=== PATIENT | female | born 1940 | race Caucasian/White ===

== ENCOUNTER 2016-09-24 01:40 | Inpatient (IN) | payer MEDICARE ==
[~2016-09-24] VITALS: Ht 154.9 cm; Wt 123.3 kg
--- NOTE | 2016-09-24 01:35 | ED.REPORT ---
HPI-Neurologic Deficit Date of Service Sep 24, 2016 ED Provider: Jeffery Phoenix MD Pt is a 75 y.o. female with a hx of DM and HTN who presents to the ED via EMS with right-sided weakness with reported onset of yesterday. Per EMS pt's family stated that pt appeared to have episodes of right-sided weakness yesterday. They claim that she was unable to get out of bed to use the restroom so they decided to call EMS. EMS states family were poor historians. Pt BS was 140 en route, per EMS. Pt denies headache, nausea, and vomiting. Pt appears confused and is a poor historian. Nursing Notes Stated Complaint: RT SIDED WEAKNESS Nursing Notes Reviewed: Yes Allergies: Coded Allergies: metformin (Unverified Adverse Reaction, Severe, kidney failure, 09/24/16) Scheduled Cholecalciferol (Vitamin D3) (Vitamin D3) 400 Unit Tablet 600 UNIT PO DAILY Furosemide (Furosemide) 20 Mg Tab 20 MG PO DAILY Gabapentin (Gabapentin) 600 Mg Tablet 600 MG PO HS Glimepiride (Glimepiride) 2 Mg Tablet 2 MG PO DAILYAC Lisinopril (Lisinopril) 10 Mg Tablet 10 MG PO DAILY Metoprolol Tartrate (Metoprolol Tartrate) 50 Mg Tablet 75 MG PO BID Triamcinolone Acet (Triamcinolone Acetonide Ointment) 1 Applic/0.25 Gm Oint 60 APPLIC TOP BID Scheduled PRN Hydroxyzine Pamoate (HydrOXYzine Pamoate) 25 Mg Capsule 25 MG PO Q6 PRN PRN For Itching General Time Seen by Provider: 01:39 Chief Complaint Weakness arm... (Right), Weakness leg... (Right) Hx Obtained From: Patient, Spouse, EMS Unable to Obtain Hx: Patient condition, Mental status Arrived By: Ambulance Sudden in Onset?: Yes Onset Occurred: Yesterday Progression Since Onset: Intermittent Past Medical History Past Medical History Diabetes mellitus Hypertension Sleep apnea Family History Noncontributory Smoking History Former Smoker Social History Drug Use: Denies drug use Other Social History: Good social support, , Local resident Ambulatory Status Independent Review of Systems Unable to Obtain ROS Patient condition, Mental status GI: Denies: Nausea, Vomiting Neurologic: Reports: Weakness (Right-sided), Denies: Headache Complete sys rev & neg: except as marked. Physical Exam Initial Vital Signs Vital Signs (First) Date Time Temp Pulse Resp B/P Pulse Ox O2 Delivery O2 Flow Rate FiO2 09/24/16 01:37 36.6 78 15 154/77 100 Room Air Initial VS: Reviewed Abdomen / GI: No distention Extremities: Vascular intact, Neuro intact Skin: Warm, Dry, No cyanosis General/Constitutional: Awake, Alert, No acute distress Appearance / Presentation: Positive: Obese, morbidly Head / Eyes: Atraumatic, Normocephalic Respiratory / Chest: Atraumatic, Breath sounds NL, Breath sounds = bilat, No respiratory distress Cardiovascular: Heart rate NL, No gallop, No murmurs Heart Rate / Rhythm: Positive: Irregular rhythm Mental Status: Positive: Disoriented to person (Age wrong) Right-sided weakness to face, arm, and leg. Left straight leg normal, ultimately leg fell to bed Dysarthric Interpretation & Diagnostics CT ANGIOGRAM BRAIN IMPRESSION: No CT evidence of stenosis or occlusion. No CT evidence of aneurysm formation or vascular malformation. Radiologist: Ridge Angel MD CT ANGIOGRAM NECK IMPRESSION: Normal CT angiogram of the left cervical carotid system. No stenosis by NASCET criteria Normal CT angiogram of the right cervical carotid system. No stenosis by NASCET criteria. Stenosis of the left vertebral artery. Radiologist: Ridge Angel MD Lab Results Interpretation Result Diagram: 09/24/16 0150 09/24/16 0150 Test 09/24/16 01:50 White Blood Count 8.8th/mm3 (3.8-10.1) Red Blood Count 4.61mil/mm3 (3.90-5.20) Hemoglobin 13.1g/dL (12.0-15.6) Hematocrit 41.8% (35.0-46.0) Mean Corpuscular Volume 90.7fL (81-100) Mean Corpuscular Hemoglobin 28.4pg (27.0-35.0) Mean Corpuscular Hemoglobin Concent 31.3% (32.0-37.0) Red Cell Distribution Width 13.5% (12.3-15.4) Platelet Count 232bil/L (150-400) Neutrophils (%) (Auto) 57.3% (40-74) Lymphocytes (%) (Auto) 28.7% (14-46) Monocytes (%) (Auto) 10.1% (4-12) Eosinophils (%) (Auto) 3.3% (0-5) Basophils (%) (Auto) 0.3% (0-3) Prothrombin Time 10.0sec (8.1-12.5) Prothromb Time International Ratio 0.94ratio Activated Partial Thromboplast Time 22.0sec (22.8-33.0) Sodium Level 141mEq/L (134-144) Potassium Level 5.9mEq/L (3.5-5.2) Chloride Level 105mEq/L (97-108) Carbon Dioxide Level 20mmol/L (18-29) Blood Urea Nitrogen 42mg/dL (8-27) Creatinine 1.27mg/dL (0.57-1.00) Estimat Glomerular Filtration Rate 59mL/min (>59) Glucose Level 122mg/dL (60-99) Calcium Level 9.7mg/dL (8.5-10.1) Total Bilirubin 0.2mg/dL (0.0-1.2) Aspartate Amino Transf (AST/SGOT) 22U/L (0-50) Alanine Aminotransferase (ALT/SGPT) 6U/L (0-32) Alkaline Phosphatase 79U/L (25-165) Troponin T < 0.010ug/L (0.0-0.011) Total Protein 7.2g/dL (6.4-8.4) Albumin 4.0g/dL (3.4-5.0) Alcohols < 10mg/dL (0-10) ECG Interpretation ECG Interpretation: Supraventricular bigeminy Time: 01:42 Interpreted by: ED physician Normal ECG Interpretation: Normal rate (58), Normal sinus rhythm X-Ray Chest Interpretation Chest Xray Interpretation: IMPRESSION: No acute cardiopulmonary disease. Interpretation / Wet Read by: Wet read ED physician CT Head Interpretation IMPRESSION: No CT evidence of hemorrhage, mass, or acute infarct. Radiologist: Ridge Angel MD Re-Eval/Medical Decision Med Decision/Clinical Course 75-year-old presents with symptoms of stroke on the right side, unclear whether primarily motor and posterior circulation, or N LMCA stroke and a difficult historian. Her symptoms are clearing but not completely resolved. She had a CTA showing left vertebral stenosis but no occlusion. The anterior circulation appears to be clear. Cannot exclude a more proximal embolic events and evolving TIA. She is admitted to medicine service. Consider MRI to evaluate the territory for ischemic injury. Not a candidate for TPA given uncertainty of onset. No remediable lesion found to require endovascular intervention. Source of Hx: Old records Re-Evaluation/Progress : Time of Eval: 05:15 Re-Evaluation/Progress Note: Pt rechecked. is now present. Discussed plan for admit, they understand and gree with plan. Consultation : Referral / Consult Name: Kecia Luke Consulted With: Hospitalist Call Returned at: 05:45 Land Development Project Manager: Accepts admit Note: Discussed pt condition. Accepts admit. Counseled Regarding: Diagnosis, Lab results Discharge & Departure Impression: Primary Impression: Left middle cerebral artery stroke Disposition: ADMITTED TO HOSPITAL Discharge Condition All VS Reviewed: Yes Condition: Improved Referrals: Constantine Orozco MD (PCP) Sharlene Attestation Portions of this note were transcribed by Ray Lin. I, Dr. Phoenix personally performed the history, physical exam and medical decision-making; I reviewed and confirmed the accuracy of the information in the transcribed note. Signed by: Sharlene Joel, 09/24/16 and 0546. copies to: Constantine Orozco MD, Christopher W MD Sep 24, 2016 01:35 RAY LIN Sep 24, 2016 01:42
[2016-09-24 01:37] VITALS: BP 154/77; PULSE 78; RESP 15; O2SAT 100
[~2016-09-24 01:40] MED LIST: CHOL400T PO; GABA600T2 PO; HYDR-3797 PO; METO50TA3 PO
[2016-09-24 01:53] LABS: BASOPHILS % (AUTO) 0.3 % (0-3); EOSINOPHILS % (AUTO) 3.3 % (0-5); MONOCYTES % (AUTO) 10.1 % (4-12); Mean Corpuscular Hemoglobin 28.4 pg (27.0-35.0); Mean Corpuscular Volume 90.7 fL (81-100); NEUTROPHILS % (AUTO) 57.3 % (40-74); Platelet Count 232 bil/L (150-400)
[2016-09-24] MEDS ORDERED: FUR20 PO (01:56)
[2016-09-24] MEDS ORDERED: METO50TA3 PO (01:59)
[2016-09-24] MEDS ORDERED: GLIM2TAB2 PO (01:59)
[2016-09-24] MEDS ORDERED: KEN1O TOP (01:59)
[2016-09-24] MEDS ORDERED: LISI10TA PO (01:59)
[2016-09-24 02:13] LABS: INR 0.94 ratio
[2016-09-24 02:33] LABS: TROPONIN T < 0.010 ug/L (0.0-0.011)
[2016-09-24 02:58] VITALS: BP 154/55; PULSE 84; RESP 17; O2SAT 97
[2016-09-24 04:54] VITALS: BP 152/43; PULSE 63; RESP 21; O2SAT 100
[2016-09-24] MEDS ORDERED: Lactated Ringer's 1,000 ML IV SCH (06:31)
[2016-09-24] MEDS ORDERED: Ondansetron 2 mg/mL 2 mL Inj IVPUSH PRN ×2 (06:35→09:15)
--- NOTE | 2016-09-24 06:46 | DRSVH ---
PROCEDURE: CT BRAIN WITHOUT CONTRAST ([id number]) INDICATIONS: Stroke TECHNIQUE: Noncontrast 4.5 mm thick angled axial sections acquired from the foramen magnum to the vertex, with c oronal reformats. COMPARISON: None. FINDINGS: Image quality: Excellent. CSF spaces: Basal cisterns are patent. No extra-axial fluid collections. Ventricles are normal in size and shape. Brain: No midline shift. No intracranial masses or hemorrhage. Kovacs-white matter interface is norm al. Skull and face: Calvarium and visualized facial bones are intact, without suspicious lesions. Sinuses: Visualized sinuses and mastoids are clear. IMPRESSION: 1. No CT evidence of acute intracranial pathology. 2. There are no discrepancies with the preliminary report. Dictated by: Fabien Berger M.D. on 09/24/2016 at 6:42 Approved by: Fabien Berger M.D. on 09/24/2016 at 6:45
--- NOTE | 2016-09-24 07:12 | NUR ---
Admit to room 3021 @ 06:45. Tucked in and updated whiteboard. Addendum: 09/24/16 at 0723 by ANTHONY LOPEZ RN No c/o pain, nausea or anxiety.
[2016-09-24 07:48] VITALS: PULSE 66
--- NOTE | 2016-09-24 07:49 | DRSVH ---
PROCEDURE: CT ANGIO HEAD AND NECK (P) INDICATIONS: lmca stroke TECHNIQUE: Pre-contrast 4.5 mm thick sections acquired from the foramen magnum to the vertex. After the adminis tration of intravenous contrast, 1 mm thick sections acquired from the aortic arch through the Elbert of [place]. Post-contrast 4.5 mm thick sections then re-acquired from the foramen magnum to the vert ex. 3-dimensional dpdqxbf-xfblyzmej-rddfoldtxh (MIP) and/or volume rendering reformats were acquired of the central intracranial vasculature and neck separately. For radiation dose reduction, the foll owing was used: automated exposure control, adjustment of mA and/or kV according to patient size. COMPARISON: None. FINDINGS: Image quality: Excellent. BRAIN: CSF spaces: Ventricles are normal in size and shape. Basal cisterns are patent. No extra-axial flu id collections. Brain: No midline shift. No intracranial bleeds or masses. Kovacs-white matter interface appears int act. Skull and face: Calvarium and facial bones appear intact, without suspicious lesions. Orbits appear normal. Sinuses: Sinuses and mastoids are clear. HEAD CT ANGIOGRAPHY: Anterior circulation: Intracranial internal carotid arteries are normal in size and flow. The flow within the paired anterior cerebral arteries is normal and symmetric. The flow within the middle cer ebral arteries is normal and symmetric. The anterior communicating artery is seen. No aneurysms are seen. Posterior circulation: Visualized portions of the vertebral arteries demonstrate normal caliber, and join to form a normal appearing basilar artery. There is a focal calcified atheromatous plaque in th e distal left vertebral artery which causes greater than 50% stenosis. Flow within the posterior cere bral arteries is normal and symmetric. No aneurysms are seen. NECK CT ANGIOGRAPHY: Carotid system: The great vessels demonstrate a conventional anatomy as they arise from the aortic a rch. The origins of the common carotid arteries appear patent. The common carotid arteries demonstr ate normal caliber and courses. The bifurcation regions are both widely patent. The internal caroti d arteries demonstrate normal calibers and courses. Posterior circulation: The origins of the vertebral arteries both appear widely patent. The more elizabeth perior extracranial portions of both vertebral arteries also demonstrate normal courses and calibers. They join to form a normal appearing basilar artery. Focal heavily calcified atheromatous plaque i n the distal left vertebral artery causing greater than 50% stenosis. Soft tissues: Partially visualized left thyroid nodule may measure up to 3 cm.. Bones: No suspicious bony lesions. Visualized cervical spine appears normally aligned. IMPRESSION: 1. 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 2. Otherwise, arterial structures of the head and neck are within normal limits. 3. There are no discrepancies with the preliminary report. Dictated by: Fabien Berger M.D. on 09/24/2016 at 7:38 Approved by: Fabien Berger M.D. on 09/24/2016 at 7:47
[2016-09-24] MEDS ORDERED: Polyethylene Glycol (PEG) 17 Gm Powder PO PRN (09:15)
[2016-09-24] MEDS ORDERED: Labetalol 5 mg/mL 4 mL Inj IVPUSH PRN (09:15)
[2016-09-24] MEDS ORDERED: Alum-Mag Hydrox-Simeth 30 mL Suspension PO PRN (09:15)
[2016-09-24] MEDS ORDERED: Dextrose 10% 250 ML IV PRN (09:15)
[2016-09-24] MEDS ORDERED: Heparin 5,000 Unit/mL Inj SUBQ SCH (09:15)
--- NOTE | 2016-09-24 09:21 | DRSVH ---
PROCEDURE: X-RAY CHEST ONE VIEW, PORTABLE ([id number]) INDICATIONS: stroke TECHNIQUE: One view of the chest was acquired. COMPARISON: [facility], , CHEST 1VW (PORTABLE), 09/11/2010, 16:36. FINDINGS: Surgical changes and devices: None. Lungs and pleura: No pleural effusions or pneumothorax. Lungs are clear, aside from interstitial pr ominence.. Mediastinum: Mediastinal contours appear normal. Heart size is enlarged. Bones and chest wall: No suspicious bony lesions. Overlying soft tissues appear unremarkable. IMPRESSION: Mild interstitial prominence and cardiomegaly. Mild developing CHF cannot be excluded. Correlate clinically. Dictated by: Leon SANTANA Interpreted: Fabien Berger MD on 09/24/2016 at 9:19 Transcribed by: SHELLY on 09/24/2016 at 9:20 Approved by: Fabien Berger M.D. on 09/24/2016 at 9:48
[2016-09-24] MEDS ORDERED: Insulin Human REGular 300 Unit/3 mL Inj SUBQ SCH (11:30)
[2016-09-24 11:35] LABS: Magnesium 1.8 mg/dL (1.6-2.6)
[2016-09-24] MEDS: Insulin LISPRO Low-Dose Scale SUBQ SCH ×3 (12:00→21:36)
[2016-09-24 13:25] VITALS: BP 180/87; PULSE 68; RESP 19; O2SAT 96
--- NOTE | 2016-09-24 14:33 | DRSVH ---
PROCEDURE: MRI BRAIN WITH AND WITHOUT CONTRAST ([id number]) INDICATIONS: right sided weakness, altered mental status TECHNIQUE: Noncontrast axial T1 spin echo, axial T2 fast spin echo, sagittal and axial FLAIR, coronal T2 fast sp in echo, axial gradient echo, axial diffusion and ADC through the brain. After the administration of contrast, axial and coronal 3D VIBE or T1 spin echo with fat saturation through the brain. COMPARISON: CT from 09/24/16. . FINDINGS: Image quality: Excellent. CSF Spaces: Basal cisterns are patent. No extra-axial fluid collections. Ventricles are normal in size and shape. Brain: Restricted diffusion with increased T2 signal in the thalamus measuring 16 x 8 mm. There is a 5 mm focus of restricted diffusion in the left occipital lobe. There are foci of increased T2 signal in the subcortical and periventricular white matter most consistent with chronic benign ischemic zarate ge. No further areas of infarction. No hemorrhage or masses. No abnormal enhancement. Skull and face: Calvarial marrow is normal in signal. Orbits appear normal. Sinuses: Sinuses and mastoids appear clear. IMPRESSION: 1. Acute infarction in the left thalamus and left occipital lobe. 2. Mild chronic benign ischemic change appropriate to the patient's age. Dictated by: Fabien Berger M.D. on 09/24/2016 at 14:23 Approved by: Fabien Berger M.D. on 09/24/2016 at 14:31
--- NOTE | 2016-09-24 14:39 | NUR ---
Intermittent confusion Patient knows her name/date/date of /place-unable to remember why she is her- unable to give any accurate history.Patient having periods of forgetfulness and confusion. Unable to remember name of her best friend who was visiting. Unable to remember that she has a 15 yr old grand son (who lives with her), confusing names of people. Addendum: 09/24/16 at 1828 by GEORGES HOLBROOK RN Patient failed nursing swallow evaluation, hospitalist notified. Patient to remain NPO pending speech therapy eval.
--- NOTE | 2016-09-24 16:09 | NUR ---
Radiologist called, reported that patient CT showed a thyroid nodule that was not noticed in initial scan. Recommended a thyroid ultra sound as follow up. Hospitalist notified.
--- NOTE | 2016-09-24 17:45 | PCM.HPMED ---
Subjective Date of Service Sep 24, 2016 Primary Provider: Admitting Physician: Kecia Luke DO Primary Care Physician: Deep Beach MD Attending Physician: Kecia Luke DO Chief Complaint: right sided weakness, confusion History of Present Illness: 75 year-old right-handed female with past medical history notable for hypertension and diabetes presents with report of new onset right sided weakness and altered mental status in the form of decreased memory and confusion. Patient is currently a very poor historian and in fact she is not even sure why she is in the hospital and seems somewhat disoriented to time and person. Her reports that yesterday patient had a transient episode of right sided weakness and rapidly resolved. Late last night to early this morning her noted that patient was having a hard time going to the bathroom and seemed confused and was asking for her sister who has been for many years. He called EMS and patient was brought to the hospital. In the ED it does not seem that patient received Aspirin. Patient initially denies any issues or complaints but when specifically told that she was brought in for right sided weakness she says she does have some right sided weakness. Review of Systems: Constitutional: Negative, except as otherwise mentioned in the history above. Ophthalmologic: Negative, except as otherwise mentioned in the history above. Cardiovascular: Negative, except as otherwise mentioned in the history above. Respiratory: Negative, except as otherwise mentioned in the history above. Gastrointestinal: Negative, except as otherwise mentioned in the history above. Genitourinary: Negative, except as otherwise mentioned in the history above. Musculoskeletal: Negative, except as otherwise mentioned in the history above. Neurological: Negative, except as otherwise mentioned in the history above. Psychiatric: Negative, except as otherwise mentioned in the history above. Hematologic/Lymphatic: Negative, except as otherwise mentioned in the history above. Allergic/Immunologic: Negative, except as otherwise mentioned in the history above. Allergies Coded Allergies: metformin (Unverified Adverse Reaction, Severe, kidney failure, 09/24/16) Home Medications Lisinopril 10 Mg Tablet 10 Mg PO DAILY 30 Days Metoprolol Tartrate 50 Mg Tablet 75 Mg PO BID 30 Days Gabapentin 600 Mg Tablet 600 Mg PO HS Hydroxyzine Pamoate 25 Mg Capsule (HydrOXYzine Pamoate) 25 Mg PO Q6 PRN Furosemide 20 Mg Tab 20 Mg PO DAILY 30 Days Glimepiride 2 Mg Tablet 2 Mg PO DAILYAC #30 TABLET Triamcinolone Acet 1 Applic/0.25 Gm Oint (Triamcinolone Acetonide Ointment) 60 Applic TOP BID Cholecalciferol (Vitamin D3) 400 Unit Tablet (Vitamin D3) 600 Unit PO DAILY Exam Vital Signs & I/O Vital Sign- Last 8 Hours Date Time Temp Pulse Resp B/P Pulse Ox O2 Delivery O2 Flow Rate FiO2 09/24/16 13:25 36.6 68 19 180/87 96 Room Air Lab & Micro Results Laboratory Tests Test 09/24/16 01:50 09/24/16 10:55 White Blood Count 8.8th/mm3 (3.8-10.1) Red Blood Count 4.61mil/mm3 (3.90-5.20) Hemoglobin 13.1g/dL (12.0-15.6) Hematocrit 41.8% (35.0-46.0) Mean Corpuscular Volume 90.7fL (81-100) Mean Corpuscular Hemoglobin 28.4pg (27.0-35.0) Mean Corpuscular Hemoglobin Concent 31.3% (32.0-37.0) Red Cell Distribution Width 13.5% (12.3-15.4) Platelet Count 232bil/L (150-400) Neutrophils (%) (Auto) 57.3% (40-74) Lymphocytes (%) (Auto) 28.7% (14-46) Monocytes (%) (Auto) 10.1% (4-12) Eosinophils (%) (Auto) 3.3% (0-5) Basophils (%) (Auto) 0.3% (0-3) Prothrombin Time 10.0sec (8.1-12.5) Prothromb Time International Ratio 0.94ratio Activated Partial Thromboplast Time 22.0sec (22.8-33.0) Sodium Level 141mEq/L (134-144) 137mEq/L (134-144) Potassium Level 5.9mEq/L (3.5-5.2) 5.3mEq/L (3.5-5.2) Chloride Level 105mEq/L (97-108) 103mEq/L (97-108) Carbon Dioxide Level 20mmol/L (18-29) 18mmol/L (18-29) Blood Urea Nitrogen 42mg/dL (8-27) 35mg/dL (8-27) Creatinine 1.27mg/dL (0.57-1.00) 1.17mg/dL (0.57-1.00) Estimat Glomerular Filtration Rate 59mL/min (>59) 65mL/min (>59) Glucose Level 122mg/dL (60-99) 113mg/dL (60-99) Calcium Level 9.7mg/dL (8.5-10.1) 9.7mg/dL (8.5-10.1) Total Bilirubin 0.2mg/dL (0.0-1.2) Aspartate Amino Transf (AST/SGOT) 22U/L (0-50) Alanine Aminotransferase (ALT/SGPT) 6U/L (0-32) Alkaline Phosphatase 79U/L (25-165) Troponin T < 0.010ug/L (0.0-0.011) Total Protein 7.2g/dL (6.4-8.4) Albumin 4.0g/dL (3.4-5.0) Alcohols < 10mg/dL (0-10) Magnesium Level 1.8mg/dL (1.6-2.6) Thyroid Stimulating Hormone (TSH) 1.410uIU/mL (0.450-4.500) Result Diagram: 09/24/16 0150 09/24/16 1055 PMH 1. Hypertension 2. Non-Insulin dependent diabetes mellitus 3. Obesity Family History Denies any family history of heart disease Social History Hx Alcohol Use: No Hx Substance Use: No Smoking Status: Former Smoker (quit more than 30 years ago) Exam Vital Signs Vital Sign - Last Date Time Temp Pulse Resp B/P Pulse Ox O2 Delivery O2 Flow Rate FiO2 09/24/16 13:25 36.6 68 19 180/87 96 Room Air General: Alert, Cooperative, No Acute Distress, Other (disoriented to time and person although after several attempts is able to get the answers correct) Head: Normal Eyes: PERRLA, EOMI, Scleral Anicteric Nose: Mucous Membr Moist/[place]ck Mouth: Mucous Membr Moist/[place]ck Neck: Supple Chest & Lungs: Chest Wall Normal, Clear to auscultation & percussion Cardiovascular: Regular Rate/Rhythm Abdomen: Non-tender, Non-distended, Normoactive bowel tones, Soft Extremities: No cyanosis/clubbing/edma bilat Neurological: Cranial Nerves 2-12 Intact, Normal Speech, Strength Normal 4/4 ext (although mildly weaker on the right compared to left), Sensation Intact ( grossly intact to soft touch), Other (tongue mildly deviated to right) Lymphatic: Other Lymph Nodes (no significant lymphadenopathy) Additional Information: Psych: calm, appropriate Lab and Diagnostics Result Diagram: 09/24/16 0150 09/24/16 1055 X-Rays, CTs and MRIs Date of Service: 09/24/16 014 PROCEDURE: X-RAY CHEST ONE VIEW, PORTABLE ([id number]) IMPRESSION: Mild interstitial prominence and cardiomegaly. Mild developing CHF cannot be excluded. Correlate clinically. Dictated by: Leon Hayden [facility] Interpreted: Fabien Berger MD on 09/24/2016 at 9: 19 Transcribed by: SHELLY on 09/24/2016 at 9:20 Approved by: Fabien Berger M.D. on 09/24/2016 at 9:48 Date of Service: 09/24/16 014 PROCEDURE: CT BRAIN WITHOUT CONTRAST ([id number]) IMPRESSION: 1. No CT evidence of acute intracranial pathology. 2. There are no discrepancies with the preliminary report. Dictated by: Fabien Berger M.D. on 09/24/2016 at 6:42 Approved by: Fabien Berger M.D. on 09/24/2016 at 6:45 PROCEDURE: CT ANGIO HEAD AND NECK (P) IMPRESSION: 1. 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 2. Otherwise, arterial structures of the head and neck are within normal limits. 3. There are no discrepancies with the preliminary report. Dictated by: Fabien Berger M.D. on 09/24/2016 at 7:38 Approved by: aFbien Berger M.D. on 09/24/2016 at 7:47 ADDENDUM: There is a left thyroid nodule poorly seen due to the patient's body habitus. Recommend thyroid ultrasound for further evaluation. Findings discussed with the patient's nurse Hossein by telephone ([id number]) at 8 AM on 09/24/2016. Dictated by: Fabien Berger M.D. on 09/24/2016 at 7:50 Approved by: Fabien Berger M.D. on 09/24/2016 at 7:54 Date of Service: 09/24/16914 PROCEDURE: MRI BRAIN WITH AND WITHOUT CONTRAST ([id number]) IMPRESSION: 1. Acute infarction in the left thalamus and left occipital lobe. 2. Mild chronic benign ischemic change appropriate to the patient's age. Dictated by: Fabien Berger M.D. on 09/24/2016 at 14:23 Approved by: Fabien Berger M.D. on 09/24/2016 at 14:31 12-lead ECG SR with evidence of bigeminy at rate of about 60bpm. no old EKG for comparison Assessment & Plan 75 year-old right-handed female with past medical history notable for hypertension and diabetes presents with report of new onset right sided weakness and altered mental status in the form of decreased memory and confusion. # Acute infarction in the left thalamus and left occipital lobe. Present on admission. - Admit to Tele - Start ASA 324mg daily - Start Lipitor daily - Permissive hypertension for now - Check fasting lipid panel - Neurology consulted. Will followup with recommendations - PT/OT/Speech consult # History of hypertension. Present on admission. - Permissive hypertension for now as noted above - Resume BP meds in few days and per pending neurology consult recommendations # Ebb-Rofyege-Iglvzcdkr Diabetes - Start ISS - Hold oral diabetic medications for now - HgA1C check # Renal insufficiency. Unclear if chronic kidney disease or acute kidney injury. - Already improving with IV fluid - Continue with IVF - Avoid nephrotoxic medications - Followup repeat BMP in am # Acute hyperkalemia, present on admission - Improving with hydration - Followup repeat labs in am # Left thyroid nodule noted on CTA brain/neck "poorly seen due to the patient's body habitus". - Recommend thyroid ultrasound for further evaluation either as inpatient vs outpatient Expected length of hospital stay is greater than 2 midnights and likely 2-3 days VTE Mechanical Devices: Intermittant Pneumatic CD Robson Gaxiola Sep 24, 2016 17:45
[2016-09-24] MEDS ORDERED: 0.9% Sodium Chloride 1,000 ML IV ONE (18:20)
[2016-09-24] MEDS: Heparin 5,000 Unit/mL Inj SUBQ SCH (20:02)
[2016-09-24 21:03] VITALS: BP 147/78; PULSE 72; RESP 18; O2SAT 97
--- NOTE | 2016-09-24 21:11 | DRSVH ---
PROCEDURE: US THYROID SONOGRAM INDICATIONS: Thyroid nodule noted on CT TECHNIQUE: Real-time scanning was performed of the thyroid gland, with image documentation. COMPARISON: [facility], CT, CT ANGIO BRAIN AND NECK, 09/24/2016, 3:10. FINDINGS: Right: Thyroid lobe measures 4.1 x 3.2 x 1.8 cm. Evaluation of the inferior pole is limited due to body habitus. The thyroid is heterogeneous in appearance with multiple small scattered nodules. Rep resentative nodules include a small predominantly solid isoechoic smoothly marginated nodule in the s uperior pole measuring 0.9 x 1.0 x 0.9 cm. Within the inferior pole, there is a mixed cystic and margaret id nodule measuring approximately 0.7 x 0.7 x 0.6 cm with an isoechoic solid component and smooth mar gins. There are internal punctate microcalcifications. Left: Thyroid lobe measures 5.2 x 3.1 x 3.2 cm. Evaluation of the inferior pole is limited due to twan dy habitus. The thyroid is heterogeneous in appearance. Within the mid left thyroid lobe, there is a predominantly solid heterogeneous ovoid nodule measuring 3.7 x 2.9 x 3.3 cm with smooth margins and internal foci of microcalcifications. Isthmus: 6 mm thick. IMPRESSION: 1. Heterogeneous thyroid with multiple small nodules. A focal dominant nodule is demonstrated in th e left lobe measuring up to 3.7 cm with microcalcifications. Recommend ultrasound guided fine needle aspiration. Dictated by: Mani Block M.D. on 09/24/2016 at 21:02 Approved by: Mani Block M.D. on 09/24/2016 at 21:10
[2016-09-25] VITALS (8 sets, daily range): BP systolic 115–159; BP diastolic 63–78; PULSE 63–84; RESP 15–18; O2SAT 93–100
--- NOTE | 2016-09-25 01:21 | NUR ---
PVR / Incontinence 44cc after 1st PVR Bladder scan. Reinforced need to use call light when Incontinent or to use bedpan.
[2016-09-25 06:34] LABS: Mean Corpuscular Hemoglobin 28.6 pg (27.0-35.0)
[2016-09-25 06:55] LABS: Magnesium 1.7 mg/dL (1.6-2.6)
[2016-09-25] MEDS: Insulin LISPRO Low-Dose Scale SUBQ SCH ×4 (07:27→21:10)
[2016-09-25 08:14] LABS: APPEARANCE,URINE CLEAR (CLEAR,HAZY); COLOR,URINE STRAW (YELLOW); OCCULT BLOOD,URINE NEGATIVE (NEGATIVE); UROBILINOGEN,URINE NORMAL (NORMAL)
[2016-09-25] MEDS: Heparin 5,000 Unit/mL Inj SUBQ SCH ×2 (08:46→21:28)
--- NOTE | 2016-09-25 09:05 | NUR ---
Evaluation completed. Please go to "Notes" then click on "Assessments and Notes" (bottom left corner of screen). Then select appropriate discipline tab on top of screen.
--- NOTE | 2016-09-25 11:31 | NUR ---
PVR pot void 155mL
--- NOTE | 2016-09-25 14:59 | NUR ---
Social Work- Initial Assessment Data: See Initial Assessment. Pt is a 75 year old female admitted 09/24/16 under inpatient status for LCMA Stroke per H&P. Pt's payor is [facility]. Pt's listed [place] Beach MD. Pt and confirm that they go to the clinic in [place]. Readmit risk score is not listed at this time. Pt's NOK is Zeeshan Shultz, , , . SW met with pt at bedside regarding discharge plan, SW role explained. Pt was able to carry conversation and answer questions appropriately. Pt identified her Zeeshan as her discharge planning contact and provided verbal consent for MANAGING MEMBER to contact Zeeshan. Pt resides in [place] with her spouse where she receives complete assistance with ADLs. T/C to Zeeshan regarding discharge plan, SW role explained. Pt's helps with dressing, toileting, feeding, housekeeping, chores, meal prep, medication management, and transportation. Pt does not drive. Pt uses a walker at home. Pt has no LTC or VA benefits. Pt has no HH or SNF history. Pt has no DPOA, pt's declined this information at this time. Pt and receive Meals on Wheels at home. OT has seen pt, recommending SNF as pt is max assist with all ADLs. PT has seen pt, recommending SNF at discharge. Pt is min A for fww but pt ambulates with difficulty maintaining upright positioning. Per family, this is baseline. ST has seen pt, recommending medications in applesauce and up at 90 degrees during meals. ALEXANDER spoke with MD regarding pt, MD feels that pt may require inpt rehab or SNF, pending further rehab during this admission. SW to await orders to discuss further discharge planning with pt. Assessment: Pt for whom is her caregiver at home. Plan: SW awaits determination of SNF versus Inpt rehab at discharge. SW to await orders to discuss further discharge planning with pt. SW will continue to follow during this admission. CAROLE Tan Addendum: 09/25/16 at 1502 by ISAMAR SIFUENTES SS Amended: Links added.
--- NOTE | 2016-09-25 15:56 | PCM.PNMED ---
Subjective Date of Service Sep 25, 2016 Subjective Denies any new issues/complaints Exam Vital Signs Vital Sign - Last Date Time Temp Pulse Resp B/P Pulse Ox O2 Delivery O2 Flow Rate FiO2 09/25/16 13:42 36.7 70 16 159/75 98 Room Air Intake and Output 09/24/16 09/24/16 09/25/16 Cumulative From/Thru 15:00 23:00 07:00 09/24/16 01:37 - 09/25/16 06:04 Intake Total 0 ml 848 ml 848 ml Balance 0 ml 848 ml 848 ml Intake Oral 0 ml 0 ml 0 ml IV Total 848 ml 848 ml # Voids 2 4 6 Exam General: Alert, Cooperative, No Acute Distress, Other (disoriented to time and person although after several attempts is able to get the answers correct) Head: Normal Eyes: PERRLA, EOMI, Scleral Anicteric Nose: Mucous Membr Moist/[place] Mouth: Mucous Membr Moist/[place] Neck: Supple Chest & Lungs: Chest Wall Normal, Clear to auscultation & percussion Cardiovascular: Regular Rate/Rhythm Abdomen: Non-tender, Non-distended, Normoactive bowel tones, Soft Extremities: No cyanosis/clubbing/edma bilat Neurological: Cranial Nerves 2-12 Intact, Normal Speech, Strength Normal 4/4 ext (although mildly weaker on the right compared to left), Sensation Intact ( grossly intact to soft touch), Other (tongue mildly deviated to right) Lymphatic: Other Lymph Nodes (no significant lymphadenopathy) Additional Information: Psych: calm, appropriate IVs and Medications IV Fluids General: Alert, Cooperative, No Acute Distress, Other (disoriented to time and person although after several attempts is able to get the answers correct) Head: Normal Eyes: PERRLA, EOMI, Scleral Anicteric Nose: Mucous Membr Moist/[place] Mouth: Mucous Membr Moist/[place] Neck: Supple Chest & Lungs: Chest Wall Normal, Clear to auscultation bilat Cardiovascular: Regular Rate/Rhythm Abdomen: Non-tender, Non-distended, Normoactive bowel tones, Soft Extremities: No cyanosis/clubbing/edema bilat Neurological: Cranial Nerves 2-12 Intact, Normal Speech, Strength Normal 4/4 ext (although mildly weaker on the right compared to left), Sensation Intact ( grossly intact to soft touch), Other (tongue mildly deviated to right) Psych: calm, appropriate Medications Reviewed: Medications were reviewed in detail Lab and Diagnostics Result Diagram: 09/25/1660409/25/16604 X-Rays, CTs and MRIs Date of Service: 09/24/16139 PROCEDURE: X-RAY CHEST ONE VIEW, PORTABLE ([id number]) IMPRESSION: Mild interstitial prominence and cardiomegaly. Mild developing CHF cannot be excluded. Correlate clinically. Dictated by: Leon Hayden [facility] Interpreted: Fabien Berger MD on 09/24/2016 at 9: 19 Transcribed by: SHELLY on 09/24/2016 at 9:20 Approved by: Fabien Berger M.D. on 09/24/2016 at 9:48 Date of Service: 09/24/16139 PROCEDURE: CT BRAIN WITHOUT CONTRAST ([id number]) IMPRESSION: 1. No CT evidence of acute intracranial pathology. 2. There are no discrepancies with the preliminary report. Dictated by: Fabien Berger M.D. on 09/24/2016 at 6:42 Approved by: Fabien Berger M.D. on 09/24/2016 at 6:45 PROCEDURE: CT ANGIO HEAD AND NECK (P) IMPRESSION: 1. 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 2. Otherwise, arterial structures of the head and neck are within normal limits. 3. There are no discrepancies with the preliminary report. Dictated by: Fabien Berger M.D. on 09/24/2016 at 7:38 Approved by: Fabien Berger M.D. on 09/24/2016 at 7:47 ADDENDUM: There is a left thyroid nodule poorly seen due to the patient's body habitus. Recommend thyroid ultrasound for further evaluation. Findings discussed with the patient's nurse Hossein by telephone ([id number]) at 8 AM on 09/24/2016. Dictated by: Fabien Berger M.D. on 09/24/2016 at 7:50 Approved by: Fabien Berger M.D. on 09/24/2016 at 7:54 Date of Service: 09/24/16 0915 PROCEDURE: MRI BRAIN WITH AND WITHOUT CONTRAST ([id number]) IMPRESSION: 1. Acute infarction in the left thalamus and left occipital lobe. 2. Mild chronic benign ischemic change appropriate to the patient's age. Dictated by: Fabien Berger M.D. on 09/24/2016 at 14:23 Approved by: Fabien Berger M.D. on 09/24/2016 at 14:31 12-lead ECG SR with evidence of bigeminy at rate of about 60bpm. no old EKG for comparison Assessment & Plan 75 year-old right-handed female with past medical history notable for hypertension and diabetes presents with report of new onset right sided weakness and altered mental status in the form of decreased memory and confusion. # Acute infarction in the left thalamus and left occipital lobe. Present on admission. - Continue Tele - Continue ASA 324mg daily - Continue Lipitor daily - Permissive hypertension for now - Fasting lipid panel in acceptable range - Neurology consulted on 09/24. Will followup with recommendations - PT/OT/Speech consult # History of hypertension. Present on admission. - Permissive hypertension for now as noted above - Resume BP meds in few days and per pending neurology consult recommendations # Hzq-Bllwlpc-Mtyfoynua Diabetes - Continue ISS - Hold oral diabetic medications for now - HgA1C check # Renal insufficiency. Unclear if chronic kidney disease or acute kidney injury. - Already improving with IV fluid - Continue with IVF - Avoid nephrotoxic medications - Followup repeat BMP in am # Acute hyperkalemia, present on admission - Improving with hydration - Followup repeat labs in am # Left thyroid nodule noted on CTA brain/neck "poorly seen due to the patient's body habitus". - Recommend thyroid ultrasound for further evaluation either as inpatient vs outpatient Dispo: SNF vs inpatient rehab in 1-2 days VTE Prophylaxis: Sub-Q Heparin (Unfractionated) VTE Mechanical Devices: Venous Foot Pump Resuscitation Status: CPR: Attempt Resuscitation Robson Gaxiola Sep 25, 2016 15:56
--- NOTE | 2016-09-25 17:20 | NUR ---
fear of needles pt gets very nervous anytime she needs to be poked. She cries out in pain before the needle has penetrated skin.
--- NOTE | 2016-09-25 18:31 | NUR ---
PVR pt was incontinent of urine in brief. PVR 118mL
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
[2016-09-26] VITALS (8 sets, daily range): BP systolic 139–175; BP diastolic 68–84; PULSE 74–86; RESP 16–18; O2SAT 93–99
[2016-09-26] MEDS: Insulin LISPRO Low-Dose Scale SUBQ SCH ×4 (08:00→19:26)
[2016-09-26] MEDS: Heparin 5,000 Unit/mL Inj SUBQ SCH ×2 (08:27→20:03)
--- NOTE | 2016-09-26 12:42 | NUR ---
Social Work: Continued Discharge Planning D: EMR reviewed. Pt is on day of hospitalization. PT is recommending pt discharge to SNF. ALEXANDER received MD MUNOZ order for pt to discharge to SNF. ALEXANDER met with pt and discussed PT recommendations for pt to discharge to SNF. SW provided SNF choice list. Pt chose [facility]. ALEXANDER called pt's spouse, Zeeshan Shultz ([phone]) to discuss pt's choice for [facility]. Pt's spouse was agreeable to pt's choice. ALEXANDER called Kassie from [facility] and made referral, provided access. ALEXANDER told Kassie that pt will be discharging today. Kassie will review pt's EMR and notify ALEXANDER if pt is accepted. If pt is accepted, ALEXANDER will call UR RN to work on [facility] authorization. ALEXANDER will continue to follow. A: Pt for whom a SNF has been deemed medically necessary. P: SW will await to hear back from [facility] on whether or not they can accept pt at discharge. ALEXANDER will continue to follow. CAROLE Lyon
--- NOTE | 2016-09-26 13:48 | NUR ---
Kassie from [facility] has accepted pt. LIZBETH RN is attempted to get authorization from [place].
--- NOTE | 2016-09-26 13:59 | NUR ---
Case Management D: Ready for d/c, clinicals faxed to [facility] robb Fuller at [place] aware plan is d/c today to [facility]>
--- NOTE | 2016-09-26 14:40 | NUR ---
Case Management: D: Authorization for d/c to SNF given by Elizabeth at [place]. CAROLE Ferrera updated.
--- NOTE | 2016-09-26 14:43 | PCM.PNMED ---
Subjective Date of Service Sep 26, 2016 Subjective Denies any new issues/complaints Exam Vital Signs Vital Sign - Last Date Time Temp Pulse Resp B/P Pulse Ox O2 Delivery O2 Flow Rate FiO2 09/26/16 10:25 82 09/26/16 09:59 36.6 18 162/78 97 Room Air Intake and Output 09/25/16 09/25/16 09/26/16 Cumulative From/Thru 15:00 23:00 07:00 09/24/16 01:37 - 09/26/16 05:17 Intake Total 377 ml 1225 ml Balance 377 ml 1225 ml Intake Oral 0 ml IV Total 377 ml 1225 ml # Voids 6 Exam General: Alert, Cooperative, No Acute Distress Head: Normal Eyes: PERRLA, EOMI, Scleral Anicteric Nose: Mucous Membr Moist/[place] Mouth: Mucous Membr Moist/[place] Neck: Supple Chest & Lungs: Chest Wall Normal, Clear to auscultation bilat Cardiovascular: Regular Rate/Rhythm Abdomen: Non-tender, Non-distended, Normoactive bowel tones, Soft Extremities: No cyanosis/clubbing/edema bilat Neurological: Cranial Nerves 2-12 Intact, Normal Speech, Strength Normal 4/4 ext (although mildly weaker on the right compared to left), Psych: calm, appropriate IVs and Medications Medications Reviewed: Medications were reviewed in detail Lab and Diagnostics Result Diagram: 09/25/16 0605 09/26/16 0710 X-Rays, CTs and MRIs Date of Service: 09/24/16139 PROCEDURE: X-RAY CHEST ONE VIEW, PORTABLE ([id number]) IMPRESSION: Mild interstitial prominence and cardiomegaly. Mild developing CHF cannot be excluded. Correlate clinically. Dictated by: Leon Hayden [facility] Interpreted: Fabien Berger MD on 09/24/2016 at 9: 19 Transcribed by: SHELLY on 09/24/2016 at 9:20 Approved by: Fabien Berger M.D. on 09/24/2016 at 9:48 Date of Service: 09/24/16 0140 PROCEDURE: CT BRAIN WITHOUT CONTRAST ([id number]) IMPRESSION: 1. No CT evidence of acute intracranial pathology. 2. There are no discrepancies with the preliminary report. Dictated by: Fabien Berger M.D. on 09/24/2016 at 6:42 Approved by: Fabien Berger M.D. on 09/24/2016 at 6:45 PROCEDURE: CT ANGIO HEAD AND NECK (P) IMPRESSION: 1. 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 2. Otherwise, arterial structures of the head and neck are within normal limits. 3. There are no discrepancies with the preliminary report. Dictated by: Fabien Berger M.D. on 09/24/2016 at 7:38 Approved by: Fabien Berger M.D. on 09/24/2016 at 7:47 ADDENDUM: There is a left thyroid nodule poorly seen due to the patient's body habitus. Recommend thyroid ultrasound for further evaluation. Findings discussed with the patient's nurse Hossein by telephone ([phone]) at 8 AM on 09/24/2016. Dictated by: Fabien Berger M.D. on 09/24/2016 at 7:50 Approved by: Fabien Berger M.D. on 09/24/2016 at 7:54 Date of Service: 09/24/16 0915 PROCEDURE: MRI BRAIN WITH AND WITHOUT CONTRAST ([id number]) IMPRESSION: 1. Acute infarction in the left thalamus and left occipital lobe. 2. Mild chronic benign ischemic change appropriate to the patient's age. Dictated by: Fabien Berger M.D. on 09/24/2016 at 14:23 Approved by: Fabien Berger M.D. on 09/24/2016 at 14:31 12-lead ECG SR with evidence of bigeminy at rate of about 60bpm. no old EKG for comparison Assessment & Plan 75 year-old right-handed female with past medical history notable for hypertension and diabetes presents with report of new onset right sided weakness and altered mental status in the form of decreased memory and confusion. # Acute infarction in the left thalamus and left occipital lobe. Present on admission. - Continue Tele - Continue ASA 324mg daily - Continue Lipitor daily - Fasting lipid panel in acceptable range - Appreciate neurology consult. Will followup with recommendations # History of hypertension. Present on admission. - Resume BP meds slowly and per pending neurology consult recommendations # Inu-Tgfepbj-Kguesodoo Diabetes - Continue ISS - Hold oral diabetic medications for now - HgA1C 6.3 # Renal insufficiency. Unclear if chronic kidney disease or acute kidney injury. - seems to have stabilized - Avoid nephrotoxic medications - Followup repeat BMP in am # Acute hyperkalemia, present on admission. Resolved - Followup repeat labs in am # Left thyroid nodule noted on CTA brain/neck "poorly seen due to the patient's body habitus". - Thyroid ultrasound 09/24 showing: "Heterogeneous thyroid with multiple small nodules. A focal dominant nodule is demonstrated in the left lobe measuring up to 3.7 cm with microcalcifications. Recommend ultrasound guided fine needle aspiration." - Will consider biopsy as inpatient vs outpatient Dispo: SNF vs inpatient rehab in 1-2 days VTE Prophylaxis: Sub-Q Heparin (Unfractionated) VTE Mechanical Devices: Venous Foot Pump Resuscitation Status: CPR: Attempt Resuscitation Robson Gaxiola Sep 26, 2016 14:43
--- NOTE | 2016-09-26 14:47 | NUR ---
Social Work: Continued Discharge Planning D: EMR reviewed. SW received T/C from LIZBETH RN confirming pt's insurance authorized her stay at [facility]. Per MD in AM multi-disciplinary rounds, pt was ready to discharge today. ALEXANDER paged to notify MD of pt's acceptance at SNF. MD stated that plans have changed and pt will not discharge until tomorrow, pending ECHO results. ALEXANDER updated LIZBETH RN to update [facility]. ALEXANDER updated Kassie at [facility] who stated that pt will still have a bed when she is ready to discharge. ALEXANDER updated pt and pt's spouse. All agreeable to plan. SW will continue to follow. A: Pt for whom a SNF has been deemed medically necessary. Pt accepted at [facility] with Dr. Beach to follow. P: Pt has been accepted at [facility] with Dr. Beach to follow. Pt and spouse agreeable to plan. [facility]SR in folder and hard chart. Body from in hard chart. Access given. [facility] faxed 09/26. ALEXANDER will continue to follow. CAROLE Lyon
[2016-09-27] VITALS (8 sets, daily range): BP systolic 125–170; BP diastolic 70–101; PULSE 64–100; RESP 18–20; O2SAT 94–99
--- NOTE | 2016-09-27 04:44 | NUR ---
activity Pt continues to have weakness and drift to her right arm and leg. A&Ox3; helps with repositioning but hasn't been OOB. incontinent of urine; calls when needed to be changed.
[2016-09-27] MEDS: Insulin LISPRO Low-Dose Scale SUBQ SCH ×4 (08:00→22:00)
[2016-09-27] MEDS: Heparin 5,000 Unit/mL Inj SUBQ SCH ×2 (09:39→20:30)
--- NOTE | 2016-09-27 12:00 | NUR ---
Social Work-readiness for discharge: Data:EMR Reviewed. Pt is on day 3 of hospitalization for LMCA stroke per H&P. Pt is likely medically stable later today or tomorrow. PT continues to recommend SNF placement. SW spoke with admissions Florentino at [facility] who confirms they are ready to accept pt when ready. UR specialist confirmed that authorization has been obtained. Paperwork and PASRR in the chart. SW will continue to follow. Assessment:Pt who would benefit from SNF. Plan; Pt has been accepted at [facility] with Dr. Beach to follow. Insurance authorization has been obtained. Paperwork and PASRR in the chart. SW will continue to follow. CAROLE Diaz
--- NOTE | 2016-09-27 14:13 | PCM.PNMED ---
Subjective Date of Service Sep 27, 2016 Subjective Neurology Consult Note Patient is a 75 year old female with history of HTN, VIRA, and type 2 diabetes who presented with right sided weakness, and was admitted for left thalamic lacunar stroke and left occipital lobe stroke. Today she denies any change in weakness, but reports continuing right arm and leg weakness, as well as left leg weakness secondary to pain. She reports continuing slurred speech. She denies any vision changes, numbness or tingling, dizziness, fainting, chest pain, shortness of breath, or N/V/D. Exam Vital Signs Vital Sign - Last Date Time Temp Pulse Resp B/P Pulse Ox O2 Delivery O2 Flow Rate FiO2 09/27/16 13:14 73 09/27/16 11:46 Room Air 09/27/16 09:14 36.6 18 150/70 94 Intake and Output 09/26/16 09/26/16 09/27/16 Cumulative From/Thru 15:00 23:00 07:00 09/24/16 01:37 - 09/27/16 06:10 Intake Total 200 ml 1471 ml 200 ml 3096 ml Output Total 300 ml 400 ml 700 ml Balance -100 ml 1071 ml 200 ml 2396 ml Intake Oral 200 ml 1471 ml 200 ml 1871 ml IV Total 1225 ml Output Urine Total 300 ml 400 ml 700 ml # Voids 3 4 4 17 # Bowel Movements 0 1 0 1 Exam General: Alert, Oriented X3, Cooperative, No acute distress Head: Normocephalic, atraumatic. External ears normal. Eyes: PERRLA, EOMI. Anicteric sclerae. Mouth: Mouth normal, Mucous membranes moist/pink Neck: Neck supple with full range of motion. Chest& Lungs: Clear to auscultation bilaterally with no crackles, wheezes, or rhonchi. Cardiovascular: Regular rate/rhythm, Normal S1, Normal S2, No murmurs/rubs/ gallops Abdomen: Non-tender, Non-distended, No masses, Normoactive bowel tones, Soft Musculoskeletal: Normal range of motion Extremities: No cyanosis/clubbing/edema bilaterally Neuro: Speech dysarthric. Strength 3/4 in bilateral lower extremities, 2/4 in right arm, 4/4 in left arm. Right facial droop noted, Sensation Intact, Finger- Nose slow on right but otherwise normal, and Heel-Jauregui delayed but smooth bilaterally. Visual fong intact without deficits. Lab and Diagnostics Result Diagram: 09/25/16 0605 09/27/16 0755 X-Rays, CTs and MRIs Date of Service: 09/24/16139 PROCEDURE: X-RAY CHEST ONE VIEW, PORTABLE ([id number]) IMPRESSION: Mild interstitial prominence and cardiomegaly. Mild developing CHF cannot be excluded. Correlate clinically. Dictated by: Leon Hayden RRA Interpreted: Fabien Berger MD on 09/24/2016 at 9: 19 Transcribed by: SHELLY on 09/24/2016 at 9:20 Approved by: Fabien Berger M.D. on 09/24/2016 at 9:48 Date of Service: 09/24/16139 PROCEDURE: CT BRAIN WITHOUT CONTRAST ([id number]) IMPRESSION: 1. No CT evidence of acute intracranial pathology. 2. There are no discrepancies with the preliminary report. Dictated by: Fabien Berger M.D. on 09/24/2016 at 6:42 Approved by: Fabien Berger M.D. on 09/24/2016 at 6:45 PROCEDURE: CT ANGIO HEAD AND NECK (P) IMPRESSION: 1. 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 2. Otherwise, arterial structures of the head and neck are within normal limits. 3. There are no discrepancies with the preliminary report. Dictated by: Fabien Berger M.D. on 09/24/2016 at 7:38 Approved by: Fabien Berger M.D. on 09/24/2016 at 7:47 ADDENDUM: There is a left thyroid nodule poorly seen due to the patient's body habitus. Recommend thyroid ultrasound for further evaluation. Findings discussed with the patient's nurse Hossein by telephone ([phone]) at 8 AM on 09/24/2016. Dictated by: Fabien Berger M.D. on 09/24/2016 at 7:50 Approved by: Fabien Berger M.D. on 09/24/2016 at 7:54 Date of Service: 09/24/16 0915 PROCEDURE: MRI BRAIN WITH AND WITHOUT CONTRAST ([id number]) IMPRESSION: 1. Acute infarction in the left thalamus and left occipital lobe. 2. Mild chronic benign ischemic change appropriate to the patient's age. Dictated by: Fabien Berger M.D. on 09/24/2016 at 14:23 Approved by: Fabien Berger M.D. on 09/24/2016 at 14:31 12-lead ECG SR with evidence of bigeminy at rate of about 60bpm. no old EKG for comparison Assessment & Plan Acute Stroke Patient presents with right sided weakness and dysarthria, with MRI brain showing a lacunar stroke of the left thalamus and a left occipital lobe stroke in a patient with no history of any cardiac illness. She was not on aspirin at home, and should continue on aspirin 81 mg indefinitely for now. She will require optimization of control of patients stroke risk factors including her hypertension and diabetes. Her blood pressure is not optimally controlled, so recommend further blood pressure control with goal BP <140/90. She is on a low dose of atorvastatin at 10 mg qhs, and this should be maximized given her acute stroke. - Aspirin 81 mg daily - Increase atorvastatin to 80 mg daily - Await echocardiogram - Goal BP <140/90 - If her telemetry reading is unrevealing by discharge, recommend Holter monitor or Zio patch outpatient. - Close follow up with PCP - Neurology outpatient follow up with Dr. Scott 4 weeks following discharge VTE Prophylaxis: Sub-Q Heparin (Unfractionated) VTE Mechanical Devices: Venous Foot Pump Resuscitation Status: CPR: Attempt Resuscitation Pipe Murillo Sep 27, 2016 14:13 Pipe Murillo Sep 27, 2016 14:13
--- NOTE | 2016-09-27 15:39 | DRSVH ---
[facility] [address] [place] [address] Echocardiogram Report Name: BRANDON BARAJAS Study Date: 09/27/2016 Height: 61 in Hospital Exam Location: [facility] Weight: 272 lb Gender: Female BSA: 2.2 m2 : 1940 Age: 75 yrs BP: 150/70 mmHg Reason For Study: CVA Ordering Physician: HOSPITALIST [facility] Performed By: Peggy Porter Referring Physician: Dr. Lenin Beach Interpretation Summary The study quality was technically difficult. The ejection fraction is estimated to be 55-60%. There are no obvious focal wall motion abnormalities noted but poor endocardial definition reduces the sensitivity for the detection of such. Assessment of diastolic parameters indicates a relaxation abnormality of the left ventricle, consistent with normal filling pressures. Injection of contrast documented no obvious interatrial shunt; however, image quality is rather poor. The aortic valve is mildly calcified. The mitral valve chordae are thickened and/or calcified. The ascending aorta is mildly enlarged. Procedure: A two-dimensional transthoracic echocardiogram with color flow and Doppler was performed. The study quality was technically difficult. There is no prior echocardiogram noted for this patient. A saline contrast injection was performed to assess for cardiac shunting. The patient was in normal sinus rhythm during the exam. Left Ventricle: The left ventricle is normal in size. Left ventricular wall thickness is normal. The LVOT velocity is 1.4 m/s. Overall left ventricular systolic function is preserved. The ejection fraction is estimated to be 55- 60%. There are no obvious focal wall motion abnormalities noted but poor endocardial definition reduces the sensitivity for the detection of such. Assessment of diastolic parameters indicates a relaxation abnormality of the left ventricle, consistent with normal filling pressures. Right Ventricle: The right ventricle grossly appears normal in size with probable normal systolic function. Atria: The left atrium is mildly dilated. Right atrial size is normal. Injection of contrast documented no obvious interatrial shunt; however, image quality is rather poor. Mitral Valve: The mitral valve leaflets are mildly calcified. The mitral valve chordae are thickened and/or calcified. There is no mitral regurgitation noted. Aortic Valve: The aortic valve is not well visualized. The aortic valve is mildly calcified. The peak aortic velocity is 3.0 m/sec. The aortic valve mean gradient is 19 mmHg. No aortic regurgitation is present. Tricuspid Valve: The tricuspid valve is not well visualized. Pulmonary artery pressures cannot be estimated because of the lack of a measurable TR jet velocity. Pulmonic Valve: The pulmonic valve is not well visualized. Great Vessels: The aortic root is normal size. The ascending aorta is mildly enlarged. The aortic arch is normal in size. The inferior vena cava was not well visualized. Pericardium/ Pleura There is no pericardial effusion. MMode/2D Measurements & Calculations LVIDd: 4.9 cm LA A2 area RA long axis Ao root diam: 3.2 cm IVSd: 0.92 cm asc Aorta Diam LVPWd: 0.78 cm RA area LA A4 area Ao Arch Diam (Prox : 16.3 cm Trans): 3.1 cm LA length (vol) RA vol: 43.1 ml RA LA vol: 69.7 ml : 20.0 mm2 LA vol index : 32.4 ml/m2 LV maxwell. diameter/BSA (cm/m^2): 2.3 Doppler Measurements & Calculations Ao V2 max MV E max juan MV E/A: 0.63 MV dec time : 302.5 cm/sec : 77.6 cm/sec Med Peak E' Juan : 0.33 sec Ao max P.6 mmHg MV A max juan Ao mean P.0 mmH.0 cm/sec E/E' med: 11.7 LVOT Max Juan MV P1/2t: 97.5 msec Lat Peak E' Juan : 135.6 cm/sec sev ratio: 0.55 E/E' lat: 7.8 E/e' average: 9.8 MV P1/2t max juan Ao V2 mean LV V1 max PG : 198.5 cm/sec Ao V2 VTI: 52.7 cm LV V1 VTI: 29.1 cm MVA(P1/2t): 2.3 cm2 Electronically signed by: Wiliam Coombs on Reading Physician:09/27/2016 03:38 PM
--- NOTE | 2016-09-27 17:30 | NUR ---
Afib/Right arm weakness Pt in Afib 110s however was up to 130s per technical business analyst. Pt denies c/p or dizziness. MD made aware, no new orders at this time. Pt right arm drifting, unable to hold it up while extended. MD made aware. No new orders at this time. Report given to oncoming RN.
--- NOTE | 2016-09-27 17:45 | PCM.PNMED ---
Subjective Date of Service Sep 27, 2016 Subjective Denies any new issues/complaints Exam Vital Signs Vital Sign - Last Date Time Temp Pulse Resp B/P Pulse Ox O2 Delivery O2 Flow Rate FiO2 09/27/16 17:10 37.1 100 18 159/101 95 Room Air Intake and Output 09/26/16 09/26/16 09/27/16 Cumulative From/Thru 15:00 23:00 07:00 09/24/16 01:37 - 09/27/16 06:10 Intake Total 200 ml 1471 ml 200 ml 3096 ml Output Total 300 ml 400 ml 700 ml Balance -100 ml 1071 ml 200 ml 2396 ml Intake Oral 200 ml 1471 ml 200 ml 1871 ml IV Total 1225 ml Output Urine Total 300 ml 400 ml 700 ml # Voids 3 4 4 17 # Bowel Movements 0 1 0 1 Exam General: Alert, Cooperative, No Acute Distress Head: Normal Eyes: PERRLA, EOMI, Scleral Anicteric Nose: Mucous Membr Moist/[place] Mouth: Mucous Membr Moist/[place] Neck: Supple Chest & Lungs: Chest Wall Normal, Clear to auscultation bilat Cardiovascular: Regular Rate/Rhythm Abdomen: Non-tender, Non-distended, Normoactive bowel tones, Soft Extremities: No cyanosis/clubbing/edema bilat Neurological: Cranial Nerves 2-12 Intact, Normal Speech, Strength Normal 4/4 ext (although mildly weaker on the right compared to left), Psych: calm, appropriate IVs and Medications Medications Reviewed: Medications were reviewed in detail Lab and Diagnostics Result Diagram: 09/25/16 0605 09/27/16 0755 X-Rays, CTs and MRIs Date of Service: 09/24/16139 PROCEDURE: X-RAY CHEST ONE VIEW, PORTABLE ([id number]) IMPRESSION: Mild interstitial prominence and cardiomegaly. Mild developing CHF cannot be excluded. Correlate clinically. Dictated by: Leon Hayden Radha Interpreted: Fabien Berger MD on 09/24/2016 at 9: 19 Transcribed by: SHELLY on 09/24/2016 at 9:20 Approved by: Fabien Berger M.D. on 09/24/2016 at 9:48 Date of Service: 09/24/16 0140 PROCEDURE: CT BRAIN WITHOUT CONTRAST ([id number]) IMPRESSION: 1. No CT evidence of acute intracranial pathology. 2. There are no discrepancies with the preliminary report. Dictated by: Fabien Berger M.D. on 09/24/2016 at 6:42 Approved by: Fabien Berger M.D. on 09/24/2016 at 6:45 PROCEDURE: CT ANGIO HEAD AND NECK (P) IMPRESSION: 1. 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 2. Otherwise, arterial structures of the head and neck are within normal limits. 3. There are no discrepancies with the preliminary report. Dictated by: Fabien Berger M.D. on 09/24/2016 at 7:38 Approved by: Fabien Berger M.D. on 09/24/2016 at 7:47 ADDENDUM: There is a left thyroid nodule poorly seen due to the patient's body habitus. Recommend thyroid ultrasound for further evaluation. Findings discussed with the patient's nurse Hossein by telephone ([phone]) at 8 AM on 09/24/2016. Dictated by: Fabien Berger M.D. on 09/24/2016 at 7:50 Approved by: Fabien Berger M.D. on 09/24/2016 at 7:54 Date of Service: 09/24/1615 PROCEDURE: MRI BRAIN WITH AND WITHOUT CONTRAST ([id number]) IMPRESSION: 1. Acute infarction in the left thalamus and left occipital lobe. 2. Mild chronic benign ischemic change appropriate to the patient's age. Dictated by: Fabien Berger M.D. on 09/24/2016 at 14:23 Approved by: Fabien Berger M.D. on 09/24/2016 at 14:31 12-lead ECG SR with evidence of bigeminy at rate of about 60bpm. no old EKG for comparison Assessment & Plan 75 year-old right-handed female with past medical history notable for hypertension and diabetes presents with report of new onset right sided weakness and altered mental status in the form of decreased memory and confusion. # Acute infarction in the left thalamus and left occipital lobe. Present on admission. - Continue Tele - Continue ASA 324mg daily - Continue Lipitor daily - Fasting lipid panel in acceptable range - Appreciate neurology consult. Will followup with recommendations # History of hypertension. Present on admission. - Resume BP meds slowly # Lpd-Freuakc-Lixskiylu Diabetes - Continue ISS - Hold oral diabetic medications for now - HgA1C 6.3 # Renal insufficiency. Unclear if chronic kidney disease or acute kidney injury. - seems to have stabilized - Avoid nephrotoxic medications - Followup repeat BMP in am # Acute hyperkalemia, present on admission. Resolved - Followup # Left thyroid nodule noted on CTA brain/neck "poorly seen due to the patient's body habitus". - Thyroid ultrasound 09/24 showing: "Heterogeneous thyroid with multiple small nodules. A focal dominant nodule is demonstrated in the left lobe measuring up to 3.7 cm with microcalcifications. Recommend ultrasound guided fine needle aspiration." - Will defer further workup as outpatient Dispo: SNF 1-2 days VTE Prophylaxis: Sub-Q Heparin (Unfractionated) VTE Mechanical Devices: Venous Foot Pump Resuscitation Status: CPR: Attempt Resuscitation Robson Gaxiola Sep 27, 2016 17:45
--- NOTE | 2016-09-27 18:52 | NUR ---
Wound Note Pressure ulcer protocol; received. Patient seen at the bedside, no pressure related skin issues noted, recommend P500 and frequent repositioning.
[2016-09-28 00:48] VITALS: BP 125/76; PULSE 67; RESP 18; O2SAT 94
--- NOTE | 2016-09-28 04:23 | NUR ---
activity Received pt at 0320, pt sleeping. No issues at this time, will monitor pt. On Q2 turns, cooperative with cares. Will monitor.
[2016-09-28 05:20] VITALS: BP 117/59; PULSE 68; RESP 18; O2SAT 95
[2016-09-28 10:41] VITALS: BP 120/69; PULSE 73; RESP 20; O2SAT 96
[2016-09-28 10:44] VITALS: PULSE 67
[2016-09-28] MEDS: Insulin LISPRO Low-Dose Scale SUBQ SCH ×2 (10:49→12:00)
[2016-09-28] MEDS: Heparin 5,000 Unit/mL Inj SUBQ SCH (10:50)
[2016-09-28] MEDS ORDERED: WARF5TAB PO (11:13)
[2016-09-28] MEDS ORDERED: ATOR80TA PO (11:13)
[2016-09-28] MEDS ORDERED: Aspirin-Expunged Drug, Do Not Renew! PO (11:13)
--- NOTE | 2016-09-28 11:24 | PCM.DIMED ---
Discharge Instructions Date of Service Sep 28, 2016 Dates of Hospitalization Sep 24, 2016 at 06:44 Discharge Diagnosis Discharge Diagnosis # Acute infarction in the left thalamus and left occipital lobe. Present on admission. 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 Unclear if new onset vs paroxysmal. Not present on admission. Rate controlled. # History of hypertension. Present on admission. # Oin-Wdycewl-Hmtnmixmj Diabetes - HgA1C 6.3 # Renal insufficiency. Suspect likely chronic kidney disease. Present on admission. Stable. # Acute hyperkalemia, present on admission. Resolved # Left thyroid nodule. Thyroid ultrasound 09/24/16 showing: "Heterogeneous thyroid with multiple small nodules. A focal dominant nodule is demonstrated in the left lobe measuring up to 3.7 cm with microcalcifications. Recommend ultrasound guided fine needle aspiration." - Will need close followup with primary care provider to arrange for further workup and management as outpatient. Medication Instructions Additional med instructions Take Coumadin (starting at 5mg daily), check INR daily until goal INR of 2-3 is reached. assisted pharmacist or MD to adjust the Coumadin dose accordingly with goal INR 2-3. Take Aspirin daily along with Coumadin until INR is equal or greater than 2 and then stop Aspirin and continue with Coumadin. Diet Discharge Diet: Low fat, Low Sodium, Heart Healthy, Diabetic Activity Discharge Activity: Other (as tolerated per physical therapy) Patient Instructions Follow-up plan 1. Followup with primary care provider (Dr. Becah) within one week 2. Followup with neurology (Dr. Scott) in [address] [address] Follow-up Provider: Deep Beach MD Follow-up with PCP in: 1 week Provider: Oniel Scott MD Follow-up in: 4 weeks Robson Gaxiola Sep 28, 2016 11:24
--- NOTE | 2016-09-28 11:54 | NUR ---
Faxed orders to [facility] and placed copy in the chart. Spoke with Cecile in admissions at [facility] and they can transport patient between [phone]. Spoke with Adilia Serrano CM at [facility] and let her know patient is discharging today. Updated FIRE CONTROL OFFICER
--- NOTE | 2016-09-28 13:50 | NUR ---
Social Work-discharge: Data:EMR reviewed. Pt is on day 4 of hospitalization for stroke per H&P. Pt is medically stable for discharge today. SW confirmed with [facility] that they are able to accept pt today. UR specialist has faxed discharge information and arranged transport for 1530. [place] Insurance authorization has been obtained. SW updated pt at bedside of discharge time and also updated Zeeshan via phone, both agreeable. UR specialist has created packet. RN,UC,pt/family, and [facility] all updated and agreeable to plan. Assessment:Pt who would benefit from SNF. Plan:Pt to discharge to [facility] today via cabulance at 1530. Insurance authorization has been obtained. RN,UC,pt/family, and [facility] all updated and agreeable to plan. CAROLE Diaz
--- NOTE | 2016-09-28 15:19 | PCM.DC.MED ---
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 Present on admission. 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 Unclear if new onset vs paroxysmal. Not present on admission. Rate controlled. # History of hypertension. Present on admission. # Ura-Vsitkui-Dottyrqhx Diabetes - HgA1C 6.3 # Renal insufficiency. Suspect likely chronic kidney disease. Present on admission. Stable. # Acute hyperkalemia, present on admission. Resolved # Left thyroid nodule. Thyroid ultrasound 09/24/16 showing: "Heterogeneous thyroid with multiple small nodules. A focal dominant nodule is demonstrated in the left lobe measuring up to 3.7 cm with microcalcifications. Recommend ultrasound guided fine needle aspiration." - Will need close followup with primary care provider to arrange for further workup and management as outpatient. Consultations 1. Neurology (Dr. Scott) Procedures XRay, CTs & MRIs Date of Service: 09/24/16 014 PROCEDURE: X-RAY CHEST ONE VIEW, PORTABLE ([id number]) IMPRESSION: Mild interstitial prominence and cardiomegaly. Mild developing CHF cannot be excluded. Correlate clinically. Dictated by: Leon Hayden [facility] Interpreted: Fabien Berger MD on 09/24/2016 at 9: 19 Transcribed by: SHELLY on 09/24/2016 at 9:20 Approved by: Fabien Berger M.D. on 09/24/2016 at 9:48 Date of Service: 09/24/16 0140 PROCEDURE: CT BRAIN WITHOUT CONTRAST ([id number]) IMPRESSION: 1. No CT evidence of acute intracranial pathology. 2. There are no discrepancies with the preliminary report. Dictated by: Fabien Berger M.D. on 09/24/2016 at 6:42 Approved by: Fabien Berger M.D. on 09/24/2016 at 6:45 PROCEDURE: CT ANGIO HEAD AND NECK (P) IMPRESSION: 1. 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 2. Otherwise, arterial structures of the head and neck are within normal limits. 3. There are no discrepancies with the preliminary report. Dictated by: Fabien Berger M.D. on 09/24/2016 at 7:38 Approved by: Fabien Berger M.D. on 09/24/2016 at 7:47 ADDENDUM: There is a left thyroid nodule poorly seen due to the patient's body habitus. Recommend thyroid ultrasound for further evaluation. Findings discussed with the patient's nurse Hossein by telephone ([id number]) at 8 AM on 09/24/2016. Dictated by: Fabien Berger M.D. on 09/24/2016 at 7:50 Approved by: Fabien Berger M.D. on 09/24/2016 at 7:54 Date of Service: 09/24/16 0915 PROCEDURE: MRI BRAIN WITH AND WITHOUT CONTRAST ([id number]) IMPRESSION: 1. Acute infarction in the left thalamus and left occipital lobe. 2. Mild chronic benign ischemic change appropriate to the patient's age. Dictated by: Fabien Berger M.D. on 09/24/2016 at 14:23 Approved by: Fabien Berger M.D. on 09/24/2016 at 14:31 ECG 12 Lead SR with evidence of bigeminy at rate of about 60bpm. no old EKG for comparison Cardiac Echo Impression Date of Service: 09/27/16 0800 Echocardiogram Report Interpretation Summary The study quality was technically difficult. The ejection fraction is estimated to be 55-60%. There are no obvious focal wall motion abnormalities noted but poor endocardial definition reduces the sensitivity for the detection of such. Assessment of diastolic parameters indicates a relaxation abnormality of the left ventricle, consistent with normal filling pressures. Injection of contrast documented no obvious interatrial shunt; however, image quality is rather poor. The aortic valve is mildly calcified. The mitral valve chordae are thickened and/or calcified. The ascending aorta is mildly enlarged. Electronically signed by: Wiliam Coombs on Reading Physician:09/27/2016 03:38 PM Other Diagnostics Date of Service: 09/24/161814 PROCEDURE: US THYROID SONOGRAM IMPRESSION: 1. Heterogeneous thyroid with multiple small nodules. A focal dominant nodule is demonstrated in the left lobe measuring up to 3.7 cm with microcalcifications. Recommend ultrasound guided fine needle aspiration. Dictated by: Mani Block M.D. on 09/24/2016 at 21:02 Approved by: Mani Block M.D. on 09/24/2016 at 21:10 Brief History 75 year-old right-handed female with past medical history notable for hypertension and diabetes presents with report of new onset right sided weakness and altered mental status in the form of decreased memory and confusion. Patient is currently a very poor historian and in fact she is not even sure why she is in the hospital and seems somewhat disoriented to time and person. Her reports that yesterday patient had a transient episode of right sided weakness and rapidly resolved. Late last night to early this morning her noted that patient was having a hard time going to the bathroom and seemed confused and was asking for her sister who has been for many years. He called EMS and patient was brought to the hospital. In the ED it does not seem that patient received Aspirin. Patient initially denies any issues or complaints but when specifically told that she was brought in for right sided weakness she says she does have some right sided weakness. 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 Present on admission. - Neurology was consulted. - Initially started on Aspirin during this hospital. - On the night of 09/27 patient was noted to gave A-fib and per neurology recommendation patient will now be discharged with initiation of Coumadin to be bridged with ASA until INR 2-3 - Fasting lipid panel in acceptable range but will be placed on Lipitor 80 daily - Goal BP < 140/90 - Per PT recs will be going to SNF # History of hypertension. Present on admission. - BP well controlled prior to d/c # Riw-Jqhkpnj-Eyyyssjxz Diabetes - Resume oral diabetic medications on discharge - HgA1C 6.3 # Renal insufficiency. Unclear if chronic kidney disease or acute kidney injury. - seems to have stabilized - Avoid nephrotoxic medications - Followup repeat BMP with PCP # Acute hyperkalemia, present on admission. Resolved # Left thyroid nodule noted on CTA brain/neck "poorly seen due to the patient's body habitus". - Thyroid ultrasound 09/24 showing: "Heterogeneous thyroid with multiple small nodules. A focal dominant nodule is demonstrated in the left lobe measuring up to 3.7 cm with microcalcifications. Recommend ultrasound guided fine needle aspiration." - Will defer further workup to PCP as outpatient Exam Vital Signs (Last) Date Time Temp Pulse Resp B/P Pulse Ox O2 Delivery O2 Flow Rate FiO2 09/28/16 10:44 67 09/28/16 10:41 37.2 20 120/69 96 Room Air Exam General: Alert, Cooperative, No Acute Distress Head: Normal Eyes: PERRLA, EOMI, Scleral Anicteric Nose: Mucous Membr Moist/[place] Mouth: Mucous Membr Moist/[place] Neck: Supple Chest & Lungs: Chest Wall Normal, Clear to auscultation bilat Cardiovascular: Regular Rate/Rhythm Abdomen: Non-tender, Non-distended, Normoactive bowel tones, Soft Extremities: No cyanosis/clubbing/edema bilat Neurological: Cranial Nerves 2-12 Intact, Normal Speech, Strength Normal 4/4 ext (although mildly weaker on the right compared to left), Psych: calm, appropriate Test 09/24/16 01:50 09/24/16 10:55 09/25/16 06:05 09/25/16 06:30 Neutrophils (%) (Auto) 57.3% (40-74) Lymphocytes (%) (Auto) 28.7% (14-46) Monocytes (%) (Auto) 10.1% (4-12) Eosinophils (%) (Auto) 3.3% (0-5) Basophils (%) (Auto) 0.3% (0-3) Prothrombin Time 10.0sec (8.1-12.5) Prothromb Time International Ratio 0.94ratio Activated Partial Thromboplast Time 22.0sec (22.8-33.0) Hemoglobin A1c 6.3% (4.8-5.6) Total Bilirubin 0.2mg/dL (0.0-1.2) Aspartate Amino Transf (AST/SGOT) 22U/L (0-50) Alanine Aminotransferase (ALT/SGPT) 6U/L (0-32) Alkaline Phosphatase 79U/L (25-165) Troponin T < 0.010ug/L (0.0-0.011) Total Protein 7.2g/dL (6.4-8.4) Albumin 4.0g/dL (3.4-5.0) Alcohols < 10mg/dL (0-10) Thyroid Stimulating Hormone (TSH) 1.410uIU/mL (0.450-4.500) White Blood Count 7.3th/mm3 (3.8-10.1) Red Blood Count 4.55mil/mm3 (3.90-5.20) Hemoglobin 13.0g/dL (12.0-15.6) Hematocrit 41.4% (35.0-46.0) Mean Corpuscular Volume 91.0fL (81-100) Mean Corpuscular Hemoglobin 28.6pg (27.0-35.0) Mean Corpuscular Hemoglobin Concent 31.4% (32.0-37.0) Red Cell Distribution Width 13.3% (12.3-15.4) Platelet Count 214bil/L (150-400) Magnesium Level 1.7mg/dL (1.6-2.6) Triglycerides Level 135mg/dL (0-149) Cholesterol Level 140mg/dL (100-199) LDL Cholesterol, Calculated 59.000mg/dL (0-99) VLDL Cholesterol 27.000mg/dL HDL Cholesterol 54mg/dL (>39) Cholesterol/HDL Ratio 2.59 (0.0-4.4) Urine Color Straw (YELLOW) Urine Appearance Clear (CLEAR,HAZY) Urine pH 5.0 (5.0-8.0) Urine Specific [place] 1.015 (1.003-1.035) Urine Protein Negativemg/dL (NEG,TRACE) Urine Glucose (UA) Negativemg/dL (NEGATIVE) Urine Ketones Negativemg/dL (NEGATIVE) Urine Occult Blood Negative (NEGATIVE) Urine Nitrite Negative (NEGATIVE) Urine Bilirubin Negative (NEGATIVE) Urine Urobilinogen Normalmg/dL (NORMAL) Urine Leukocyte Esterase Negative (NEGATIVE) Urine RBC 0-2/hpf (0-2) Urine WBC 0-5/hpf (0-5) Urine Epithelial Cells Few/hpf (NONE-MOD) Urine Crystals None seen (NONE SEEN) Urine Bacteria Few/hpf (NONE-FEW) Urine Hyaline Casts None/lpf (NONE) Urine Granular Casts None seen (NONE SEEN) Urine Waxy Casts None seen (NONE SEEN) Urine Red Blood Cell Casts None seen (NONE SEEN) Urine White Blood Cell Casts None seen (NONE SEEN) Urine Mucus None seen (None Seen) Urine Trichomonas None seen (NONE SEEN) Urine Yeast None (NONE SEEN) Urinalysis Comment None Urine Culture Reflexed Not indicated Urine Opiates Screen Negative Urine Methadone Screen Negative Urine Barbiturates Screen Negative Urine Amphetamines Screen Negative Urine Benzodiazepines Screen Negative Urine Cocaine Metabolite Screen Negative Urine Cannabinoids Screen Negative Test 09/26/16 07:10 09/27/16 07:55 Prealbumin 24mg/dL (20-40) Sodium Level 138mEq/L (134-144) Potassium Level 5.1mEq/L (3.5-5.2) Chloride Level 102mEq/L (97-108) Carbon Dioxide Level 22mmol/L (18-29) Blood Urea Nitrogen 27mg/dL (8-27) Creatinine 1.13mg/dL (0.57-1.00) Estimat Glomerular Filtration Rate 67mL/min (>59) Glucose Level 119mg/dL (60-99) Calcium Level 9.4mg/dL (8.5-10.1) Discharge Medications Discharge Medications ([Aspirin-Expunged Drug, Do Not Renew!]) 325 MG TABLET 325 MG PO DAILY take until INR greater or equal to 2 and then stop Aspirin and continue with Coumadin Prescribed by: AMALIA WALLS MD Atorvastatin (Lipitor) 80 Mg Tablet 80 MG PO HS Prescribed by: AMALIA WALLS MD Cholecalciferol (Vitamin D3) (Vitamin D3) 400 Unit Tablet 600 UNIT PO DAILY ( Reported) Furosemide (Furosemide) 20 Mg Tab 20 MG PO DAILY (Reported) Gabapentin (Gabapentin) 600 Mg Tablet 600 MG PO HS (Reported) Glimepiride (Glimepiride) 2 Mg Tablet 2 MG PO DAILYAC (Reported) Lisinopril (Lisinopril) 10 Mg Tablet 10 MG PO DAILY (Reported) Metoprolol Tartrate (Metoprolol Tartrate) 50 Mg Tablet 75 MG PO BID (Reported) Triamcinolone Acet (Triamcinolone Acetonide Ointment) 1 Applic/0.25 Gm Oint 60 APPLIC TOP BID (Reported) Warfarin Sodium (Coumadin) 5 Mg Tablet 5 MG PO DAILY Goal INR 2-3 Prescribed by: AMALIA WALLS MD As needed Hydroxyzine Pamoate (HydrOXYzine Pamoate) 25 Mg Capsule 25 MG PO Q6 PRN PRN For Itching Prescribed by: JUS GHOSH MD Additional med instructions Take Coumadin (starting at 5mg daily), check INR daily until goal INR of 2-3 is reached. [facility] pharmacist or MD to adjust the Coumadin dose accordingly with goal INR 2-3. Take Aspirin daily along with Coumadin until INR is equal or greater than 2 and then stop Aspirin and continue with Coumadin. Followup Plan Disposition: SNF Follow-up plan 1. Followup with primary care provider (Dr. Beach) within one week 2. Followup with neurology (Dr. Scott) in [address] [address] Discharge Diet: Low fat, Low Sodium, Heart Healthy, Diabetic Discharge Activity: Other (as tolerated per physical therapy) Follow-up Provider: Deep Beach MD Follow-up with PCP in: 1 week Provider: Oniel Scott MD Follow-up in: 4 weeks Time spent 40 min copies to: Deep Beach MD; Oniel Scott MD, Masoud Sep 28, 2016 15:19
--- NOTE | 2016-09-28 15:54 | NUR ---
DISCHARGE Report called to Sarah RN at [facility], [facility]. Body sheet filled out, all belongings with pt -including CPAP. Pt denies pain and SOB at rest. IV DCd intact, tele removed. Pt given bed bath and gown change prior to discharge. Lisbet from [employer] transportation taking pt to [facility]. Taken to curb in WC.
--- NOTE | 2016-09-28 21:05 | PCM.PNMED ---
Subjective Date of Service Sep 28, 2016 Subjective Neurology Consult Note Patient is a 75 year old female with history of HTN, VIRA, and type 2 diabetes who presented with right sided weakness, and was admitted for left thalamic lacunar stroke and left occipital lobe stroke. Overnight, she was noted to have about 3 hours (4:30 7:30 PM) of atrial fibrillation with rapid ventricular rate in 130s. During this time she had no complaints and denies any new symptoms. She denies chest pain, shortness of breath, palpitations, dizziness, or fainting. Today she reports continuing right arm and leg weakness, as well as continuing left leg pain. She has no other new complaints. Exam Vital Signs Vital Sign - Last Date Time Temp Pulse Resp B/P Pulse Ox O2 Delivery O2 Flow Rate FiO2 09/28/16 10:44 67 09/28/16 10:41 37.2 20 120/69 96 Room Air Intake and Output 09/27/16 09/27/16 09/28/16 Cumulative From/Thru 15:00 23:00 07:00 09/24/16 01:37 - 09/28/16 05:20 Intake Total 900 ml 113 ml 4109 ml Output Total 1335 ml 2035 ml Balance 900 ml -1222 ml 2074 ml Intake Oral 900 ml 113 ml 2884 ml IV Total 1225 ml Output Urine Total 1335 ml 2035 ml # Voids 2 19 # Bowel Movements 0 0 1 Exam General: Alert, Oriented X3, Cooperative, No acute distress Head: Normocephalic, atraumatic. External ears normal. Eyes: PERRLA, EOMI. Anicteric sclerae. Mouth: Mouth normal, Mucous membranes moist/pink Neck: Neck supple with full range of motion. Chest& Lungs: Clear to auscultation bilaterally with no crackles, wheezes, or rhonchi. Cardiovascular: Regular rate/rhythm, Normal S1, Normal S2, systolic ejection murmur at right sternal border. Abdomen: Non-tender, Non-distended, No masses, Normoactive bowel tones, Soft Musculoskeletal: Normal range of motion Extremities: No cyanosis/clubbing/edema bilaterally. Left leg pain to palpation. Neuro: Speech dysarthric. Strength 3/4 in bilateral lower extremities, 2/4 in right arm, 4/4 in left arm. Right facial droop noted, Sensation Intact, Finger- Nose slow on right but otherwise normal, and Heel-Jauregui delayed but smooth bilaterally. Visual fong intact without deficits. Lab and Diagnostics Result Diagram: 09/25/16 0605 09/27/16 0755 X-Rays, CTs and MRIs Date of Service: 09/24/16139 PROCEDURE: X-RAY CHEST ONE VIEW, PORTABLE ([id number]) IMPRESSION: Mild interstitial prominence and cardiomegaly. Mild developing CHF cannot be excluded. Correlate clinically. Dictated by: Leon Hayden [facility] Interpreted: Fabien Berger MD on 09/24/2016 at 9: 19 Transcribed by: SHELLY on 09/24/2016 at 9:20 Approved by: Fabien Berger M.D. on 09/24/2016 at 9:48 Date of Service: 09/24/16139 PROCEDURE: CT BRAIN WITHOUT CONTRAST ([id number]) IMPRESSION: 1. No CT evidence of acute intracranial pathology. 2. There are no discrepancies with the preliminary report. Dictated by: Fabien Berger M.D. on 09/24/2016 at 6:42 Approved by: Fabien Berger M.D. on 09/24/2016 at 6:45 PROCEDURE: CT ANGIO HEAD AND NECK (P) IMPRESSION: 1. 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 2. Otherwise, arterial structures of the head and neck are within normal limits. 3. There are no discrepancies with the preliminary report. Dictated by: Fabien Berger M.D. on 09/24/2016 at 7:38 Approved by: Fabien Berger M.D. on 09/24/2016 at 7:47 ADDENDUM: There is a left thyroid nodule poorly seen due to the patient's body habitus. Recommend thyroid ultrasound for further evaluation. Findings discussed with the patient's nurse Hossein by telephone ([id number]) at 8 AM on 09/24/2016. Dictated by: Fabien Berger M.D. on 09/24/2016 at 7:50 Approved by: Fabien Berger M.D. on 09/24/2016 at 7:54 Date of Service: 09/24/16 0915 PROCEDURE: MRI BRAIN WITH AND WITHOUT CONTRAST ([id number]) IMPRESSION: 1. Acute infarction in the left thalamus and left occipital lobe. 2. Mild chronic benign ischemic change appropriate to the patient's age. Dictated by: Fabien Berger M.D. on 09/24/2016 at 14:23 Approved by: Fabien Berger M.D. on 09/24/2016 at 14:31 12-lead ECG SR with evidence of bigeminy at rate of about 60bpm. no old EKG for comparison Cardiac Echo Impressions Date of Service: 09/27/16 0800 Echocardiogram Report Interpretation Summary The study quality was technically difficult. The ejection fraction is estimated to be 55-60%. There are no obvious focal wall motion abnormalities noted but poor endocardial definition reduces the sensitivity for the detection of such. Assessment of diastolic parameters indicates a relaxation abnormality of the left ventricle, consistent with normal filling pressures. Injection of contrast documented no obvious interatrial shunt; however, image quality is rather poor. The aortic valve is mildly calcified. The mitral valve chordae are thickened and/or calcified. The ascending aorta is mildly enlarged. Electronically signed by: Wiliam Coombs on Reading Physician:09/27/2016 03:38 PM Additional Diagnostics Date of Service: 09/24/16 1815 PROCEDURE: US THYROID SONOGRAM IMPRESSION: 1. Heterogeneous thyroid with multiple small nodules. A focal dominant nodule is demonstrated in the left lobe measuring up to 3.7 cm with microcalcifications. Recommend ultrasound guided fine needle aspiration. Dictated by: Mani Block M.D. on 09/24/2016 at 21:02 Approved by: Mani Block M.D. 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 Present on admission. - Neurology was consulted. - Initially started on Aspirin during this hospital. - On the night of 09/27 patient was noted to gave A-fib and per neurology recommendation patient will now be discharged with initiation of Coumadin to be bridged with ASA until INR 2-3 - Fasting lipid panel in acceptable range but will be placed on Lipitor 80 daily - Goal BP < 140/90 - Per PT recs will be going to SNF Acute left thalamic and left occipital lobe ischemic stroke Patient presents with right sided weakness and dysarthria, with MRI brain showing a lacunar stroke of the left thalamus and a left occipital lobe stroke in a patient with no history of any cardiac illness. She was not on aspirin at home, and should continue on aspirin 81 mg indefinitely for now. She will require optimization of control of patients stroke risk factors including her hypertension and diabetes. Her blood pressure is now well controlled. She is on a low dose of atorvastatin at 10 mg qhs, and this should be maximized given her acute stroke. She was noted to have a 3 hour episode of afib, with no prior known history of afib. Her [id number] score is 7, indicating a 9.6% thromboembolism risk per year. We recommend she be placed on anticoagulation, with discontinuation of aspirin once therapeutic. - Bridge aspirin to warfarin - Increase atorvastatin to 80 mg daily - Goal BP <140/90 - Close follow up with PCP - Neurology outpatient follow up with Dr. Scott 4 weeks following discharge Patient was discharged before she could be seen by the attending. VTE Prophylaxis: Sub-Q Heparin (Unfractionated) VTE Mechanical Devices: Venous Foot Pump Resuscitation Status: CPR: Attempt Resuscitation Pipe Murillo Sep 28, 2016 21:05
== END 2016-09-28 15:54 | DRG 66 ==
LOC: SED 01:40 → OBSVTOIN 06:44 → MPC 06:44 → INTOOBSV 06:44
PROVIDERS: ADMIT Internal Medicine; ATTEND Internal Medicine
DX: I63.512 Cerebral infarction due to unspecified occlusion or stenosis of left middle cerebral artery (principal); I48.91 Unspecified atrial fibrillation; I10 Essential (primary) hypertension; E11.9 Type 2 diabetes mellitus without complications; E87.5 Hyperkalemia; Z87.891 Personal history of nicotine dependence; N28.9 Disorder of kidney and ureter, unspecified